=== PATIENT | male | born 1985 | race Caucasian/White ===

== ENCOUNTER 2016-09-23 09:59 | Emergency (ER) | payer OTHER ==
[~2016-09-23] VITALS: Ht 170.2 cm; Wt 77.2 kg
[2016-09-23] MEDS ORDERED: VALIUM5 MG PO (13:02)
[2016-09-23] MEDS ORDERED: MOTRIN600 MG PO (13:02)
[2016-09-23] MEDS ORDERED: PERCOCET 5/31 TABLET PO (13:02)
[2016-09-23 14:28] VITALS: BP 109/58
== END 2016-09-23 14:55 | disposition home or self-care (01) ==
LOC: EME 09:59
DX: S22.089A Unspecified fracture of T11-T12 vertebra, initial encounter for closed fracture (principal); W17.89XA Other fall from one level to another, initial encounter
CPT/HCPCS: 72100; 72128; 99281; 99284; J1885